=== PATIENT | female | born 1945 | race Caucasian/White ===

== ENCOUNTER 2019-09-13 07:39 | Day surgery (SDC) | payer BC, MEDICARE ==
[2019-09-13] MEDS ORDERED: Sodium Chloride 0.9% 10 ML Syringe FLUSH PRN (08:30)
[2019-09-13 09:46] VITALS: BP 141/83; PULSE 91
--- NOTE | 2019-09-13 12:29 | OR ---
DATE OF PROCEDURE: 09/13/2019 SURGEON: Mandy Jon MD POSTOPERATIVE CARE: Postoperative care will be provided mainly at the [address] [place] [address] [facility] in conjunction with [facility]. PREOPERATIVE DIAGNOSIS: Cataract, right eye. POSTOPERATIVE DIAGNOSIS: Cataract, right eye. PROCEDURE: Phacoemulsification with intraocular lens placement, right eye. ANESTHESIA: Topical and intracameral. ESTIMATED BLOOD LOSS: Minimal. COMPLICATIONS: None. PATHOLOGY SPECIMENS: None. SURGICAL FINDINGS: None. INDICATION FOR PROCEDURE: The patient is a 74-year-old female with history of a visually significant cataract in the right eye, which interfered with activities of daily living. This consisted of a nuclear sclerosis cataract. Following careful discussion of the risks, benefits and alternatives to cataract extraction with intraocular lens placement including blindness and , the patient elected to proceed, and informed, written consent was obtained prior to the procedure. DESCRIPTION OF THE PROCEDURE: The patient was previously identified, and a marifer placed above the right eye. All sources, including the patient, indicated that the right eye was the correct eye. The patient was subsequently taken to the operating room where standard monitors were applied. The patient was then prepped and draped in the usual sterile fashion for ophthalmic surgery. Attention was first directed at the 12 o'clock position where a paracentesis port was fashioned. Shugar solution followed by Viscoat was instilled into the eye. Attention was then directed to the 8:30 position where a triplanar incision was made in a near-clear manner using a keratome. A continuous capsulorrhexis was then made using a combination of the cystotome and Utrata forceps. Hydrodissection was achieved using a balanced salt solution, and the lens rotated nicely. Phacoemulsification was then done using a modified [id number] technique without complication. Phaco time was 7.98 CDE. The remaining cortex was removed using the irrigation/aspiration handpiece. Provisc was then instilled into the eye. A Technis lens, model RI3202, at 18.5 diopters was then placed in the capsular bag using an [place] injector. The remaining viscoelastic was removed using the irrigation/aspiration forceps. All wounds were then checked and found to be watertight. The lid speculum and drapes were removed. Maxitrol ointment was placed in the patient's right eye, and the eye was shielded. The patient tolerated the procedure well. The patient was instructed to follow up tomorrow. All needle and sponge counts were correct at the end of the procedure. Mandy Jon MD /[id number]
== END 2019-09-13 09:58 | disposition home or self-care (01) ==
LOC: JP.SDS 07:39
PROVIDERS: ATTEND Ophthalmology
DX: H25.11 Age-related nuclear cataract, right eye (principal); I10 Essential (primary) hypertension; E66.9 Obesity, unspecified; Z88.0 Allergy status to penicillin; Z68.39 Body mass index [BMI] 39.0-39.9, adult
CPT/HCPCS: 66984; V2632

== ENCOUNTER 2023-11-14 09:43 | Inpatient (IN) | payer MEDICARE ==
[2023-11-14 10:08] LABS: BASOPHILS ABSOLUTE AUTO 0.08 K/uL (0.00-0.10); BASOPHILS PERCENT AUTO 1.2 % (0.1-1.3); EOSINOPHILS PERCENT AUTO 4.5 % (0.0-5.4); HEMATOCRIT 35.8 % (34.3-46.0); IMMATURE GRAN ABSOLUTE AUTO 0.03 K/uL (0.00-0.23); IMMATURE GRAN PERCENT AUTO 0.5 % (0.0-0.7); LYMPHOCYTES ABSOLUTE AUTO 1.45 K/uL (0.8-3.3); LYMPHOCYTES PERCENT AUTO 21.8 % (11.4-47.7); MEAN CORPUSCULAR HEMOGLOBIN 30.7 pg (31.6-35.5); MEAN CORPUSCULAR HGB CONC 33.5 g/dL (31.6-35.5); MEAN CORPUSCULAR VOLUME 91.6 fL (81.4-99.0); MONOCYTES ABSOLUTE AUTO 0.62 K/uL (0.20-0.90); MONOCYTES PERCENT AUTO 9.3 % (3.3-12.6); NEUTROPHILS ABSOLUTE AUTO 4.16 K/uL (1.0-7.6); NEUTROPHILS PERCENT AUTO 62.7 % (40.0-78.1); PLATELET COUNT,PLT 266 K/uL (130-375); RED BLOOD CELL COUNT 3.91 M/uL (3.77-5.24); WHITE BLOOD CELL COUNT,WBC 6.6 K/uL (3.2-11.0)
[2023-11-14] MEDS ORDERED: Lactated Ringers 1,000 ML IV SCH (10:15)
[2023-11-14 10:23] LABS: ALANINE AMINOTRANSFERASE,ALT 27 U/L (12-78); ALBUMIN 3.5 g/dL (3.4-5.0); ALKALINE PHOSPHATASE 81 U/L (46-116); ANION GAP 12.7 mmol/L (5.0-14.0); ASPARTATE AMNIOTRANSFERASE,AST 22 U/L (15-37); BILIRUBIN TOTAL 0.9 mg/dL (0.2-1.0); BLOOD UREA NITROGEN,BUN 10 mg/dL (7-18); C-REACTIVE PROTEIN < 0.50 mg/dL (<0.50); CALCIUM 8.8 mg/dL (8.5-10.1); CARBON DIOXIDE,CO2 26 mmol/L (21-32); CHLORIDE,CL 99 mmol/L (100-108); EST CRCL DRUG DOSING (CG) 35.49 mL/min; ESTIMATED GFR 57 mL/min (>60); GLUCOSE RANDOM 122 mg/dL (74-106); POTASSIUM,K 3.7 mmol/L (3.6-5.2); SODIUM,NA 134 mmol/L (140-148)
[2023-11-14 10:24] LABS: LACTIC ACID 1.5 mmol/L (0.4-2.0)
[2023-11-14 11:36] LABS: APPEARANCE,URINE SLIGHTLY CLOUDY (CLEAR); BILIRUBIN,URINE NEGATIVE (NEGATIVE); COLOR,URINE YELLOW (YELLOW); GLUCOSE,URINE NEGATIVE (NEGATIVE); KETONES,URINE NEGATIVE (NEGATIVE); LEUKOCYTE ESTERASE,URINE MODERATE (NEGATIVE); NITRITE,URINE NEGATIVE (NEGATIVE); OCCULT BLOOD,URINE TRACE-INTACT (NEGATIVE); PROTEIN,URINE NEGATIVE (NEGATIVE); UROBILINOGEN,URINE 0.2 EU/dL (0.2-1.0)
[2023-11-14 11:41] LABS: AMORPHOUS SEDIMENT,URINE NOT SEEN; BACTERIA,URINE RARE; EPITHELIAL CELLS,URINE MODERATE; MUCUS,URINE NOT SEEN; RBC,URINE 0-5 (0-5)
[2023-11-14] MEDS ORDERED: Sodium Chloride 0.9% 100 ML IV SCH (11:45)
[2023-11-14] MEDS ORDERED: Iopamidol 755 Mg/ML 100 ML Bottle IV SCH (11:45)
[2023-11-14] MEDS ORDERED: Albuterol/Ipratropium 3.0-0.5 MG/3 ML Neb Soln NEB ONE (12:48)
[2023-11-14] MEDS ORDERED: Furosemide 40 MG/4 ML VIAL IVPUSH ONE (13:25)
[2023-11-14] MEDS ORDERED: Sodium Chloride 0.9% 10 ML Syringe FLUSH PRN (14:23)
[2023-11-14] MEDS ORDERED: Benzocaine/Cetylpyridinium/Menthol Lozenge MUCMEM PRN (22:41)
[2023-11-15 04:50] LABS: BASOPHILS ABSOLUTE AUTO 0.07 K/uL (0.00-0.10); BASOPHILS PERCENT AUTO 0.9 % (0.1-1.3); EOSINOPHILS ABSOLUTE AUTO 0.32 K/uL (0.00-0.40); EOSINOPHILS PERCENT AUTO 3.9 % (0.0-5.4); HEMOGLOBIN 11.8 g/dL (11.2-15.5); IMMATURE GRAN ABSOLUTE AUTO 0.04 K/uL (0.00-0.23); IMMATURE GRAN PERCENT AUTO 0.5 % (0.0-0.7); LYMPHOCYTES ABSOLUTE AUTO 1.66 K/uL (0.8-3.3); LYMPHOCYTES PERCENT AUTO 20.4 % (11.4-47.7); MEAN CORPUSCULAR HEMOGLOBIN 30.9 pg (31.6-35.5); MEAN CORPUSCULAR HGB CONC 33.7 g/dL (31.6-35.5); MEAN CORPUSCULAR VOLUME 91.6 fL (81.4-99.0); MONOCYTES ABSOLUTE AUTO 0.77 K/uL (0.20-0.90); MONOCYTES PERCENT AUTO 9.5 % (3.3-12.6); NEUTROPHILS ABSOLUTE AUTO 5.27 K/uL (1.0-7.6); NEUTROPHILS PERCENT AUTO 64.8 % (40.0-78.1); PLATELET COUNT,PLT 267 K/uL (130-375); RED BLOOD CELL COUNT 3.82 M/uL (3.77-5.24); WHITE BLOOD CELL COUNT,WBC 8.1 K/uL (3.2-11.0)
[2023-11-15 05:12] LABS: CALCIUM 8.9 mg/dL (8.5-10.1); EST CRCL DRUG DOSING (CG) 35.49 mL/min; POTASSIUM,K 3.4 mmol/L (3.6-5.2)
[2023-11-15 05:26] LABS: ANION GAP 12.4 mmol/L (5.0-14.0)
[2023-11-15] MEDS: Levothyroxine 100 MCG Tab PO SCH (07:45)
[2023-11-15] MEDS: Pantoprazole 40 MG Tab.CR PO SCH (07:45)
[2023-11-15 08:34] LABS: INFLUENZA A NAA NEGATIVE (NEGATIVE); INFLUENZA B NAA NEGATIVE (NEGATIVE); RESPIRATORY SYNCYTIAL VIR NAA NEGATIVE (NEGATIVE)
[2023-11-15 08:36] LABS: CORONAVIRUS COVID-19 NAA POSITIVE (NEGATIVE)
[2023-11-15] MEDS ORDERED: DILTIAZEM PO SCH ×2 (09:00)
[2023-11-15] MEDS ORDERED: DILTIAZEM HCL 300 MG PO SCH (09:00)
[2023-11-15] MEDS ORDERED: Non-Formulary Medication 1 Each (Rivaroxaban [Xarelto] 20 MG Tablet) PO SCH (09:00)
[2023-11-15] MEDS ORDERED: Lisinopril 10 MG Tab PO SCH (09:00)
[2023-11-15] MEDS ORDERED: Non-Formulary Medication 1 Each (Levothyroxine Sodium [Synthroid] 150 MCG Tablet) PO SCH (09:00)
[2023-11-15] MEDS ORDERED: Non-Formulary Medication 1 Each (Metoprolol Succinate [Toprol Xl 100mg] 100 MG Tab.Er) PO SCH (09:00)
[2023-11-15] MEDS: Rivaroxaban 10 MG Tab PO SCH (09:32)
[2023-11-15] MEDS ORDERED: Lisinopril 20 MG Tab PO SCH (11:00)
[2023-11-15] MEDS ORDERED: Metoprolol Succinate 50 MG Tab.ER PO SCH (11:00)
[2023-11-15] MEDS: prednisoLONE Acetate 1% Ophth Susp 5 ML Bottle EYERT SCH ×2 (11:17→11:18)
[2023-11-15] MEDS ORDERED: Furosemide 20 MG Tab PO ONE (14:30)
[2023-11-15] MEDS: Latanoprost 0.005% Ophth Soln 2.5 ML Bottle EYEBOTH SCH (20:06)
[2023-11-15] MEDS: Acetaminophen 325 MG Tab PO PRN (20:06)
[2023-11-16] MEDS: Pantoprazole 40 MG Tab.CR PO SCH (07:37)
[2023-11-16] MEDS: Levothyroxine 100 MCG Tab PO SCH (07:37)
[2023-11-16] MEDS: Rivaroxaban 10 MG Tab PO SCH (08:53)
[2023-11-16] MEDS: Latanoprost 0.005% Ophth Soln 2.5 ML Bottle EYEBOTH SCH (20:50)
[2023-11-16] MEDS: Acetaminophen 325 MG Tab PO PRN (20:50)
[2023-11-17] MEDS ORDERED: Aminophylline 500 MG/20 ML SDV IVPUSH PRN (08:47)
[2023-11-17] MEDS: Rivaroxaban 10 MG Tab PO SCH (11:15)
[2023-11-17] MEDS: Pantoprazole 40 MG Tab.CR PO SCH (11:15)
[2023-11-17] MEDS: Levothyroxine 100 MCG Tab PO SCH (11:15)
[2023-11-17 12:05] VITALS: PULSE 84
[2023-11-17 12:06] VITALS: BP 151/79
== END 2023-11-17 17:15 | disposition home or self-care (01) | DRG 292 ==
LOC: JP.ED 09:43 → JP.MS 14:23
PROVIDERS: ADMIT Internal Medicine; ATTEND Internal Medicine
DX: I11.0 Hypertensive heart disease with heart failure (principal); I50.9 Heart failure, unspecified; K21.9 Gastro-esophageal reflux disease without esophagitis; E03.9 Hypothyroidism, unspecified; I48.91 Unspecified atrial fibrillation; R06.03 Acute respiratory distress; I49.9 Cardiac arrhythmia, unspecified; E66.9 Obesity, unspecified; Z68.41 Body mass index [BMI] 40.0-44.9, adult; M17.12 Unilateral primary osteoarthritis, left knee; Z88.0 Allergy status to penicillin; Z79.01 Long term (current) use of anticoagulants; Z79.899 Other long term (current) drug therapy; Z79.890 Hormone replacement therapy; Z86.010 Personal history of colon polyps; Z90.89 Acquired absence of other organs; Z96.659 Presence of unspecified artificial knee joint
CPT/HCPCS: 0241U; 36415; 71046; 71275; 78452; 80048; 80053; 81001; 83605; 83880; 84145; 84484; 85025; 85379; 86140; 87040; 93306; 94640; 96374; 99285; A9270-GY; A9500; J1940; J2785; J3490; J7120; J7620; Q9967

== ENCOUNTER 2024-12-20 06:59 | Day surgery (SDC) | payer MEDICARE ==
[2024-12-20] MEDS ORDERED: fentaNYL 50 MCG/ML SDV ONE (07:22)
[2024-12-20] MEDS ORDERED: Propofol 200 MG/20 ML SDV ONE (07:22)
[2024-12-20] MEDS: Lactated Ringers 1,000 ML IV SCH (07:37)
[2024-12-20 10:06] VITALS: BP 123/60; PULSE 81
== END 2024-12-20 10:20 | disposition home or self-care (01) ==
LOC: JP.SDS 06:59
PROVIDERS: ATTEND Internal Medicine
DX: Z12.11 Encounter for screening for malignant neoplasm of colon (principal); K63.5 Polyp of colon; I10 Essential (primary) hypertension; K21.9 Gastro-esophageal reflux disease without esophagitis; F41.9 Anxiety disorder, unspecified
CPT/HCPCS: 00811-QZ; 88305; J2704; J3010; J7120